=== PATIENT | male | born 1955 | race Hispanic/Latino ===

== ENCOUNTER 2021-10-08 23:13 | Emergency (ER) | payer SELFPAY ==
[2021-10-08] MEDS ORDERED: SODIUM CHLORIDE 0.9% 1000 ML 1,000 ML IV ONE (23:15)
--- NOTE | 2021-10-08 23:28 | Emergency Department Report ---
HPI <NICK OROZCO - Last Filed: 10/09/21 10:39> - HPI HPI: 66-year-old male [place] with concern for an overdose. The patient was given 4 mg of Narcan and EMS says that they did have some response/improvement in his mentation. However, upon arrival to our emergency department and placed into room #19 the patient remains altered and/or intoxicated. He is nonverbal and only responds to painful stimuli currently. He has never been in this emergency department previously. <KARAN MCKNIGHT S - Last Filed: 10/09/21 16:55> - General Time Seen by Provider: 10/08/21 23:15 ED Review of Systems ROS: Stated complaint: OVERDOSE Other details as noted in HPI <NICK OROZCO - Last Filed: 10/09/21 10:39> ROS: Stated complaint: OVERDOSE Other details as noted in HPI Comment: Unobtainable due to pts medical conditions <KARAN MCKNIGHT - Last Filed: 10/09/21 16:55> Physical Exam - Physical Exam Vital Signs: Vital Signs 10/08/21 10/08/21 10/08/21 23:14 23:17 23:22 Temperature 98.5 F Pulse Rate 91 H 83 Respiratory 22 22 Rate Blood Pressure Blood Pressure 122/69 [Left] O2 Sat by Pulse 94 94 97 Oximetry 10/08/21 10/08/21 10/09/21 23:31 23:45 00:01 Temperature Pulse Rate 91 H 94 H 90 Respiratory 24 24 24 Rate Blood Pressure 137/80 108/54 109/56 Blood Pressure [Left] O2 Sat by Pulse 92 89 97 Oximetry 10/09/21 10/09/21 10/09/21 00:15 00:31 01:01 Temperature Pulse Rate 88 90 89 Respiratory 21 21 20 Rate Blood Pressure 92/46 107/56 99/53 Blood Pressure [Left] O2 Sat by Pulse 95 97 99 Oximetry 10/09/21 10/09/21 10/09/21 01:15 01:30 01:45 Temperature Pulse Rate 99 H 99 H 93 H Respiratory 9 L 19 19 Rate Blood Pressure 125/64 134/63 134/56 Blood Pressure [Left] O2 Sat by Pulse 99 98 96 Oximetry 11/21/21 11/21/21 11/21/21 02:01 02:15 02:31 Temperature Pulse Rate 99 H 90 81 Respiratory 21 18 16 Rate Blood Pressure 129/61 135/81 125/72 Blood Pressure [Left] O2 Sat by Pulse 98 98 100 Oximetry <NICK OROZCO - Last Filed: 10/09/21 10:39> - Physical Exam Vital Signs: Vital Signs 10/08/21 23:14 Temperature 98.5 F Pulse Rate 91 H Respiratory 22 Rate Blood Pressure 122/69 [Left] O2 Sat by Pulse 94 Oximetry Physical Exam: GENERAL: The patient is ill-appearing and unresponsive. HENT: Normocephalic. Atraumatic. Patient has moist mucous membranes. EYES: Pupils reactive to light bilaterally. NECK: Supple. Trachea is midline. CHEST/LUNGS: Clear to auscultation. There is no respiratory distress noted. HEART/CARDIOVASCULAR: Regular. There is no tachycardia. There is no murmur. ABDOMEN: Abdomen is soft, nontender. Patient has normal bowel sounds. SKIN: Skin is warm and dry. NEURO: The patient is sedated and/or intoxicated. He does start groaning to painful stimuli. The patient is seen moving all 4 extremities at different times. MUSCULOSKELETAL: There is no obvious deformity. <KARAN MCKNIGHT - Last Filed: 10/09/21 16:55> ED Course Vital Signs 10/08/21 10/08/21 10/08/21 23:14 23:17 23:22 Temperature 98.5 F Pulse Rate 91 H 83 Respiratory 22 22 Rate Blood Pressure Blood Pressure 122/69 [Left] O2 Sat by Pulse 94 94 97 Oximetry 10/08/21 10/08/21 10/09/21 23:31 23:45 00:01 Temperature Pulse Rate 91 H 94 H 90 Respiratory 24 24 24 Rate Blood Pressure 137/80 108/54 109/56 Blood Pressure [Left] O2 Sat by Pulse 92 89 97 Oximetry 10/09/21 10/09/21 10/09/21 00:15 00:31 01:01 Temperature Pulse Rate 88 90 89 Respiratory 21 21 20 Rate Blood Pressure 92/46 107/56 99/53 Blood Pressure [Left] O2 Sat by Pulse 95 97 99 Oximetry 10/09/21 10/09/21 10/09/21 01:15 01:30 01:45 Temperature Pulse Rate 99 H 99 H 93 H Respiratory 9 L 19 19 Rate Blood Pressure 125/64 134/63 134/56 Blood Pressure [Left] O2 Sat by Pulse 99 98 96 Oximetry 10/09/21 10/09/21 10/09/21 02:01 02:15 02:31 Temperature Pulse Rate 99 H 90 81 Respiratory 21 18 16 Rate Blood Pressure 129/61 135/81 125/72 Blood Pressure [Left] O2 Sat by Pulse 98 98 100 Oximetry - Reevaluation(s) Reevaluation #1: 10/09/21 06:07 Patient currently on monitor. Stable vital signs. Normal oxygen saturation. Protecting airway. <NICK OROZCO - Last Filed: 10/09/21 10:39> Vital Signs 10/08/21 23:14 Temperature 98.5 F Pulse Rate 91 H Respiratory 22 Rate Blood Pressure 122/69 [Left] O2 Sat by Pulse 94 Oximetry <KARAN MCKNIGHT - Last Filed: 10/09/21 16:55> ED Medical Decision Making - Lab Data Result diagrams: 10/08/21 23:20 10/08/21 23:20 - Medical Decision Making I have reviewed all diagnostics obtained in emergency department including CT of the head, chest x-ray, lab results. Patient is awake and alert. He is appropriate. He is quite upset that his clothes were cut off. He is discharged home <NICK OROZCO - Last Filed: 10/09/21 10:39> - Lab Data Result diagrams: 10/08/21 23:20 10/08/21 23:20 Lab Results 10/08/21 10/08/21 10/08/21 Range/Units 23:20 23:20 23:20 WBC 7.4 (4.5-11.0) K/mm3 RBC 4.27 (3.65-5.03) M/mm3 Hgb 13.4 (11.8-15.2) gm/dl Hct 40.6 (35.5-45.6) % MCV 95 H (84-94) fl MCH 31 (28-32) pg MCHC 33 (32-34) % RDW 14.7 (13.2-15.2) % Plt Count 254 (140-440) K/mm3 Lymph % (Auto) 27.6 (13.4-35.0) % [place] % (Auto) 10.9 H (0.0-7.3) % Eos % (Auto) 5.1 H (0.0-4.3) % Baso % (Auto) 1.1 (0.0-1.8) % Lymph # (Auto) 2.0 (1.2-5.4) K/mm3 [place] # (Auto) 0.8 (0.0-0.8) K/mm3 Eos # (Auto) 0.4 (0.0-0.4) K/mm3 Baso # (Auto) 0.1 (0.0-0.1) K/mm3 Seg Neutrophils % 55.3 (40.0-70.0) % Seg Neutrophils # 4.1 (1.8-7.7) K/mm3 PT 12.6 (12.2-14.9) Sec. INR 0.85 L (0.87-1.13) Sodium 138 (137-145) mmol/L Potassium 3.5 L (3.6-5.0) mmol/L Chloride 103.6 (98-107) mmol/L Carbon Dioxide 22 (22-30) mmol/L Anion Gap 16 mmol/L BUN 14 (9-20) mg/dL Creatinine 0.8 (0.8-1.3) mg/dL Estimated GFR > 60 ml/min BUN/Creatinine Ratio 18 % Glucose 115 H (75-100) mg/dL Calcium 8.5 (8.4-10.2) mg/dL Total Bilirubin 0.30 (0.1-1.2) mg/dL AST 19 (5-40) units/L ALT 31 (7-56) units/L Alkaline Phosphatase 80 (35-129) units/L Ammonia (25-60) umol/L Troponin T < 0.010 (0.00-0.029) ng/mL Total Protein 6.7 (6.3-8.2) g/dL Albumin 4.0 (3.9-5) g/dL Albumin/Globulin Ratio 1.5 % TSH (0.270-4.200) mlU/mL Salicylates (2.8-20.0) mg/dL Acetaminophen (10.0-30.0) ug/mL Plasma/Serum Alcohol (0-0.07) % 10/08/21 10/08/21 10/08/21 Range/Units 23:20 23:20 23:20 WBC (4.5-11.0) K/mm3 RBC (3.65-5.03) M/mm3 Hgb (11.8-15.2) gm/dl Hct (35.5-45.6) % MCV (84-94) fl MCH (28-32) pg MCHC (32-34) % RDW (13.2-15.2) % Plt Count (140-440) K/mm3 Lymph % (Auto) (13.4-35.0) % [place] % (Auto) (0.0-7.3) % Eos % (Auto) (0.0-4.3) % Baso % (Auto) (0.0-1.8) % Lymph # (Auto) (1.2-5.4) K/mm3 [place] # (Auto) (0.0-0.8) K/mm3 Eos # (Auto) (0.0-0.4) K/mm3 Baso # (Auto) (0.0-0.1) K/mm3 Seg Neutrophils % (40.0-70.0) % Seg Neutrophils # (1.8-7.7) K/mm3 PT (12.2-14.9) Sec. INR (0.87-1.13) Sodium (137-145) mmol/L Potassium (3.6-5.0) mmol/L Chloride (98-107) mmol/L Carbon Dioxide (22-30) mmol/L Anion Gap mmol/L BUN (9-20) mg/dL Creatinine (0.8-1.3) mg/dL Estimated GFR ml/min BUN/Creatinine Ratio % Glucose (75-100) mg/dL Calcium (8.4-10.2) mg/dL Total Bilirubin (0.1-1.2) mg/dL AST (5-40) units/L ALT (7-56) units/L Alkaline Phosphatase (35-129) units/L Ammonia 21.0 L (25-60) umol/L Troponin T (0.00-0.029) ng/mL Total Protein (6.3-8.2) g/dL Albumin (3.9-5) g/dL Albumin/Globulin Ratio % TSH 1.350 (0.270-4.200) mlU/mL Salicylates < 0.3 L (2.8-20.0) mg/dL Acetaminophen (10.0-30.0) ug/mL Plasma/Serum Alcohol (0-0.07) % 10/08/21 10/08/21 Range/Units 23:20 23:20 WBC (4.5-11.0) K/mm3 RBC (3.65-5.03) M/mm3 Hgb (11.8-15.2) gm/dl Hct (35.5-45.6) % MCV (84-94) fl MCH (28-32) pg MCHC (32-34) % RDW (13.2-15.2) % Plt Count (140-440) K/mm3 Lymph % (Auto) (13.4-35.0) % [place] % (Auto) (0.0-7.3) % Eos % (Auto) (0.0-4.3) % Baso % (Auto) (0.0-1.8) % Lymph # (Auto) (1.2-5.4) K/mm3 [place] # (Auto) (0.0-0.8) K/mm3 Eos # (Auto) (0.0-0.4) K/mm3 Baso # (Auto) (0.0-0.1) K/mm3 Seg Neutrophils % (40.0-70.0) % Seg Neutrophils # (1.8-7.7) K/mm3 PT (12.2-14.9) Sec. INR (0.87-1.13) Sodium (137-145) mmol/L Potassium (3.6-5.0) mmol/L Chloride (98-107) mmol/L Carbon Dioxide (22-30) mmol/L Anion Gap mmol/L BUN (9-20) mg/dL Creatinine (0.8-1.3) mg/dL Estimated GFR ml/min BUN/Creatinine Ratio % Glucose (75-100) mg/dL Calcium (8.4-10.2) mg/dL Total Bilirubin (0.1-1.2) mg/dL AST (5-40) units/L ALT (7-56) units/L Alkaline Phosphatase (35-129) units/L Ammonia (25-60) umol/L Troponin T (0.00-0.029) ng/mL Total Protein (6.3-8.2) g/dL Albumin (3.9-5) g/dL Albumin/Globulin Ratio % TSH (0.270-4.200) mlU/mL Salicylates (2.8-20.0) mg/dL Acetaminophen 5.0 L (10.0-30.0) ug/mL Plasma/Serum Alcohol 0.43 H (0-0.07) % - EKG Data -: EKG Interpreted by Ut EKG shows normal: sinus rhythm, axis, intervals, QRS complexes (RVH), ST-T waves Rate: normal - EKG Data When compared to previous EKG there are: previous EKG unavailable Interpretation: other (Sinus rhythm, normal axis, rate of 93 bpm, RVH. No ST elevation GA.) - Radiology Data Radiology results: report reviewed, image reviewed XR chest 1V ap INDICATION / CLINICAL INFORMATION: Altered mental status. COMPARISON: None available. FINDINGS: SUPPORT DEVICES: None. HEART /PULMONARY VASCULATURE: Median sternotomy changes. There is cardiac enlargement. No significant pulmonary vasculature congestion. LUNGS / PLEURA: Moderate asymmetric parenchymal opacities noted within the lateral and basilar region of the right lung. This is favored to be chronic. Left lung is clear consolidation. No sizable pleural effusion. Lucency along the lateral right lung is presumably artifactual. No definite pneumothorax is seen. ADDITIONAL FINDINGS: No significant additional findings. IMPRESSION: Moderate asymmetric parenchymal opacities in the right lung are favored to be chronic. - Medical Decision Making This patient presented to the emergency department [place] a [place]. Initially EMS said that there was some response to Narcan, but the patient presents mostly unresponsive to our emergency department. He does moan/groan to painful stimuli and is seen moving all 4 extremities at different times. His initial vital signs are reassuring including being afebrile. Chest x-ray does not show any acute process including any pneumothorax, pleural effusion, widened mediastinum, or obvious pneumonia. EKG does not have any morphology consistent with ST elevation myocardial infarction. Labs have been mostly unremarkable thus far including CBC, metabolic panel, ammonia level, coags, negative troponin, normal thyroid function, but the pat ient's blood alcohol level came back extremely elevated at 0.43. A banana bag has been ordered. Patient has been sent for a CT scan of the head without contrast. Patient has been signed out to the overnight emergency physician, Dr Gibbs, to follow-up on the CT head results and continue to monitor the patient until he is at least clinically sober, if not legally sober, for reevaluation of his men tation and assistance with disposition. <KARAN MCKNIGHT - Last Filed: 10/09/21 16:55> Critical care attestation.: If time is entered above; I have spent that time in minutes in the direct care of this critically ill patient, excluding procedure time. <NICK OROZCO - Last Filed: 10/09/21 10:39> Critical Care Time: No Critical care attestation.: If time is entered above; I have spent that time in minutes in the direct care of this critically ill patient, excluding procedure time. <KARAN MCKNIGHT - Last Filed: 10/09/21 16:55> ED Disposition Is pt being admited?: No Does the pt Need Aspirin: No <NICK OROZCO - Last Filed: 10/09/21 10:39> Is pt being admited?: No <KARAN MCKNIGHT - Last Filed: 10/09/21 16:55> Clinical Impression: Alcohol intoxication, Unresponsive episode Disposition: HOME / SELF CARE / HOMELESS Condition: Stable Referrals: RUKHSANA VANCE MD [Staff Physician] - 3-5 Days
[2021-10-08 23:37] LABS: Basophils # (Auto) 0.1 K/mm3 (0.0-0.1); Basophils % (Auto) 1.1 % (0.0-1.8); Eosinophils # (Auto) 0.4 K/mm3 (0.0-0.4); Eosinophils % (Auto) 5.1 % (0.0-4.3); Hematocrit 40.6 % (35.5-45.6); Hemoglobin 13.4 gm/dl (11.8-15.2); Lymphocytes % (Auto) 27.6 % (13.4-35.0); Mean Corpuscular HGB Conc 33 % (32-34); Mean Corpuscular Volume 95 fl (84-94); Monocytes # (Auto) 0.8 K/mm3 (0.0-0.8); Monocytes % (Auto) 10.9 % (0.0-7.3); Platelet Count 254 K/mm3 (140-440); Red Blood Count 4.27 M/mm3 (3.65-5.03); Red Cell Distribution Width 14.7 % (13.2-15.2)
[2021-10-08 23:46] LABS: INR 0.85 (0.87-1.13)
--- NOTE | 2021-10-08 23:48 | XRay Report ---
XR chest 1V ap INDICATION / CLINICAL INFORMATION: Altered mental status. COMPARISON: None available. FINDINGS: SUPPORT DEVICES: None. HEART /PULMONARY VASCULATURE: Median sternotomy changes. There is cardiac enlargement. No significant pulmonary vasculature congestion. LUNGS / PLEURA: Moderate asymmetric parenchymal opacities noted within the lateral and basilar region of the right lung. This is favored to be chronic. Left lung is clear consolidation. No sizable pleur al effusion. Lucency along the lateral right lung is presumably artifactual. No definite pneumothorax is seen. ADDITIONAL FINDINGS: No significant additional findings. IMPRESSION: Moderate asymmetric parenchymal opacities in the right lung are favored to be chronic. Recommend clin ical correlation, as acute pneumonia cannot be entirely excluded. Signer Name: Anselmo Headley MD Signed: 10/08/2021 11:43 PM Workstation Name: [id number]
[2021-10-08] MEDS ORDERED: THIAMINE 100 MG, FOLIC ACID 1 MG, MULTIPLE VITAMIN INJ, ADULT 10 ML in SODIUM CHLORIDE ... IV ONE (23:54)
[2021-10-08 23:58] LABS: Alanine Aminotransferase 31 units/L (7-56); BUN/Creatinine Ratio 18; Blood Urea Nitrogen 14 mg/dL (9-20); Calcium 8.5 mg/dL (8.4-10.2); Hemolysis Index 4
--- NOTE | 2021-10-09 01:12 | Cat Scan Report ---
CT HEAD WITHOUT CONTRAST INDICATION / CLINICAL INFORMATION: Altered mental status. TECHNIQUE: All CT scans at this location are performed using CT dose reduction for ALARA by means of automated exposure control. COMPARISON: None available. FINDINGS: BRAIN PARENCHYMA: No acute intracranial hemorrhage. No evidence of recent infarct. No mass effect or midline shift. White matter chronic small vessel ischemic changes. VENTRICULAR SYSTEM/EXTRA-AXIAL SPACES: Age-related cerebral atrophy. No extra-axial fluid collection. ORBITS: Normal as visualized. SKELETAL SYSTEM/SOFT TISSUES: Normal bones and soft tissues. PARANASAL SINUSES/MASTOID AIR CELLS: No significant abnormality. ADDITIONAL FINDINGS: None. IMPRESSION: 1. No acute intracranial abnormality. Signer Name: Anselmo Headley MD Signed: 10/09/2021 1:07 AM Workstation Name: [id number]
[2021-10-09 10:59] VITALS: BP 135/70
== END 2021-10-09 11:09 | disposition home or self-care (01) ==
LOC: ED 23:13
DX: F10.129 Alcohol abuse with intoxication, unspecified (principal); Y90.9 Presence of alcohol in blood, level not specified; R79.1 Abnormal coagulation profile; R40.4 Transient alteration of awareness
CPT/HCPCS: 36415; 70450; 71045; 80053; 82140; 84443; 84484; 85025; 85610; 93005; 96365; 96366; 99285; J3411; J3490; J7030; 80320; Q0162; G0480

== ENCOUNTER 2022-02-24 22:48 | Emergency (ER) | payer SELFPAY ==
[2022-02-25] MEDS ORDERED: SODIUM CHLORIDE 0.9% 1000 ML 1,000 ML IV ONE (00:46)
--- NOTE | 2022-02-25 01:12 | XRay Report ---
Chest single view INDICATION: Dyspnea IMPRESSION: Patchy airspace disease within the right lower lung is unchanged from 10/08/2021. This ma y be chronic opacity. The left lung is clear. Signer Name: Jose Crawford MD Signed: 02/25/2022 1:08 AM Workstation Name: [email or web address]
[2022-02-25 01:47] LABS: Basophils % (Auto) 0.7 % (0.0-1.8); Eosinophils # (Auto) 0.3 K/mm3 (0.0-0.4); Eosinophils % (Auto) 3.4 % (0.0-4.3); Hematocrit 42.1 % (35.5-45.6); Hemoglobin 13.8 gm/dl (11.8-15.2); Lymphocytes # (Auto) 2.4 K/mm3 (1.2-5.4); Lymphocytes % (Auto) 32.6 % (13.4-35.0); Mean Corpuscular HGB Conc 33 % (32-34); Mean Corpuscular Volume 92 fl (84-94); Monocytes # (Auto) 0.5 K/mm3 (0.0-0.8); Monocytes % (Auto) 6.8 % (0.0-7.3); Platelet Count 212 K/mm3 (140-440); Red Cell Distribution Width 15.7 % (13.2-15.2)
[2022-02-25 02:07] LABS: Alanine Aminotransferase 9 units/L (7-56); Albumin 3.8 g/dL (3.9-5); BUN/Creatinine Ratio 13; Blood Urea Nitrogen 15 mg/dL (9-20); Calcium 8.2 mg/dL (8.4-10.2); Hemolysis Index 9
--- NOTE | 2022-02-25 05:05 | Emergency Department Report ---
<VJ WORRELL - Last Filed: 02/25/22 05:01> ED Altered Mental Status HPI - General Chief Complaint: Altered Mental Status Stated Complaint: ETOH Time Seen by Provider: 02/25/22 00:45 Source: patient Mode of arrival: Stretcher Limitations: No Limitations - History of Present Illness Initial Comments: Was found at the airport at [facility] with decreased responsiveness with episodes of aggression. ETOH per EMS. Responds only to deep pain. Not able to communicate at this time. MD Complaint: altered mental status, confusion, decreased responsiveness, intoxication -: unknown Severity: severe Consistency of Symptoms: constant Context: alcohol abuse Associated Symptoms: denies other symptoms - Related Data Allergies Allergy/AdvReac Type Severity Reaction Status Date / Time No Known Allergies Allergy Verified 10/09/21 00:38 ED Review of Systems Comment: Unobtainable due to pts medical conditions ED Past Medical Hx - Past Medical History Previous Medical History?: No Hx Hypertension: No Hx CVA: No - Social History Smoking Status: Unknown if ever smoked Substance Use Type: Alcohol ED Physical Exam - General Limitations: No Limitations, Altered Mental Status General appearance: appears intoxicated, other (dissheveled ) - Head Head exam: Present: atraumatic, normocephalic - Eye Eye exam: Present: normal appearance - ENT ENT exam: Present: mucous membranes moist - Neck Neck exam: Present: normal inspection - Respiratory Respiratory exam: Present: normal lung sounds bilaterally. Absent: respiratory distress - Cardiovascular Cardiovascular Exam: Present: regular rate, normal rhythm. Absent: systolic murmur, diastolic murmur, rubs, gallop - GI/Abdominal GI/Abdominal exam: Present: soft, normal bowel sounds - Rectal Rectal exam: Present: deferred - Extremities Exam Extremities exam: Present: normal inspection - Back Exam Back exam: Present: normal inspection - Expanded Neurological Exam Expanded Best Eye Response ([place]): (3) open to voice Best Motor Response ([place]): (6) obeys commands Best Verbal Response ([place]): (4) confused conversation [place] Total: 13 - Psychiatric Psychiatric exam: Present: depressed - Skin Skin exam: Present: warm, dry, intact, normal color. Absent: rash - Lab Data Result diagrams: 02/25/22 01:00 02/25/22 01:00 - Radiology Data Radiology results: report reviewed, image reviewed - Medical Decision Making work up showed high etoh , fluids given will rpeat level , pt is homeless ED Disposition Clinical Impression: Alcohol intoxication Disposition: 01 HOME / SELF CARE / HOMELESS Condition: Stable Instructions: Binge-Drinking Information, Adult Referrals: RUKHSANA VANCE MD [Primary Care Provider] - 3-5 Days Print Language: [place] <JIMMY MCLEANTristin - Last Filed: 02/25/22 09:17> ED Review of Systems ROS: Stated complaint: ETOH Other details as noted in HPI ED Course Vital Signs 02/25/22 02/25/22 02/25/22 02:00 03:16 05:00 Temperature 98 F 97.5 F L Pulse Rate 82 82 89 Respiratory 18 15 20 Rate Blood Pressure 97/59 Blood Pressure 101/46 92/52 [Left] O2 Sat by Pulse 100 99 97 Oximetry 02/25/22 07:07 Temperature Pulse Rate 77 Respiratory 16 Rate Blood Pressure Blood Pressure 104/57 [Left] O2 Sat by Pulse 94 Oximetry - Reevaluation(s) Reevaluation #1: 02/25/22 09:16 The patient later woke up and he was not slurring his words he was alert active and oriented x3 and so at this time he no longer seems intoxicated with alcohol. He is discharged. - Lab Data Result diagrams: 02/25/22 01:00 02/25/22 01:00 Lab Results 02/25/22 02/25/22 02/25/22 Range/Units 01:00 01:00 01:00 WBC 7.3 (4.5-11.0) K/mm3 RBC 4.60 (3.65-5.03) M/mm3 Hgb 13.8 (11.8-15.2) gm/dl Hct 42.1 (35.5-45.6) % MCV 92 (84-94) fl MCH 30 (28-32) pg MCHC 33 (32-34) % RDW 15.7 H (13.2-15.2) % Plt Count 212 (140-440) K/mm3 Lymph % (Auto) 32.6 (13.4-35.0) % [place] % (Auto) 6.8 (0.0-7.3) % Eos % (Auto) 3.4 (0.0-4.3) % Baso % (Auto) 0.7 (0.0-1.8) % Lymph # (Auto) 2.4 (1.2-5.4) K/mm3 [place] # (Auto) 0.5 (0.0-0.8) K/mm3 Eos # (Auto) 0.3 (0.0-0.4) K/mm3 Baso # (Auto) 0.0 (0.0-0.1) K/mm3 Seg Neutrophils % 56.5 (40.0-70.0) % Seg Neutrophils # 4.2 (1.8-7.7) K/mm3 Sodium 141 (137-145) mmol/L Potassium 4.0 (3.6-5.0) mmol/L Chloride 104.7 (98-107) mmol/L Carbon Dioxide 19 L (22-30) mmol/L Anion Gap 21 mmol/L BUN 15 (9-20) mg/dL Creatinine 1.2 (0.8-1.3) mg/dL Estimated GFR > 60 ml/min BUN/Creatinine Ratio 13 % Glucose 84 (75-100) mg/dL Calcium 8.2 L (8.4-10.2) mg/dL Total Bilirubin 0.20 (0.1-1.2) mg/dL AST 15 (5-40) units/L ALT 9 (7-56) units/L Alkaline Phosphatase 79 (35-129) units/L Total Protein 7.0 (6.3-8.2) g/dL Albumin 3.8 L (3.9-5) g/dL Albumin/Globulin Ratio 1.2 % Salicylates < 0.3 L (2.8-20.0) mg/dL Acetaminophen (10.0-30.0) ug/mL Plasma/Serum Alcohol (0-0.07) % 02/25/22 02/25/22 02/25/22 Range/Units 01:00 01:00 04:37 WBC (4.5-11.0) K/mm3 RBC (3.65-5.03) M/mm3 Hgb (11.8-15.2) gm/dl Hct (35.5-45.6) % MCV (84-94) fl MCH (28-32) pg MCHC (32-34) % RDW (13.2-15.2) % Plt Count (140-440) K/mm3 Lymph % (Auto) (13.4-35.0) % [place] % (Auto) (0.0-7.3) % Eos % (Auto) (0.0-4.3) % Baso % (Auto) (0.0-1.8) % Lymph # (Auto) (1.2-5.4) K/mm3 [place] # (Auto) (0.0-0.8) K/mm3 Eos # (Auto) (0.0-0.4) K/mm3 Baso # (Auto) (0.0-0.1) K/mm3 Seg Neutrophils % (40.0-70.0) % Seg Neutrophils # (1.8-7.7) K/mm3 Sodium (137-145) mmol/L Potassium (3.6-5.0) mmol/L Chloride (98-107) mmol/L Carbon Dioxide (22-30) mmol/L Anion Gap mmol/L BUN (9-20) mg/dL Creatinine (0.8-1.3) mg/dL Estimated GFR ml/min BUN/Creatinine Ratio % Glucose (75-100) mg/dL Calcium (8.4-10.2) mg/dL Total Bilirubin (0.1-1.2) mg/dL AST (5-40) units/L ALT (7-56) units/L Alkaline Phosphatase (35-129) units/L Total Protein (6.3-8.2) g/dL Albumin (3.9-5) g/dL Albumin/Globulin Ratio % Salicylates (2.8-20.0) mg/dL Acetaminophen 5.0 L (10.0-30.0) ug/mL Plasma/Serum Alcohol 0.37 H 0.33 H (0-0.07) % Critical care attestation.: If time is entered above; I have spent that time in minutes in the direct care of this critically ill patient, excluding procedure time. ED Disposition Is pt being admited?: No Does the pt Need Aspirin: No
[2022-02-25] MEDS ORDERED: THIAMINE 100 MG, FOLIC ACID 1 MG, MULTIPLE VITAMIN INJ, ADULT 10 ML in SODIUM CHLORIDE ... IV ONE (05:06)
[2022-02-25 07:08] VITALS: BP 104/57
== END 2022-02-25 09:41 | disposition home or self-care (01) ==
LOC: ED 22:48
DX: F10.129 Alcohol abuse with intoxication, unspecified (principal); Y90.9 Presence of alcohol in blood, level not specified
CPT/HCPCS: 36415; 71045; 80053; 85025; 96361; 96365; 96366; 99284; J3411; J3490; J7030; 80320; Q0162; G0480

== ENCOUNTER 2022-06-09 23:38 | Emergency (ER) | payer SELFPAY ==
[2022-06-10] MEDS ORDERED: SODIUM CHLORIDE 0.9% 1000 ML 1,000 ML IV ONE (03:11)
--- NOTE | 2022-06-10 03:18 | Emergency Department Report ---
<CHA ALVAREZ - Last Filed: 06/10/22 06:21> ED General Adult HPI - General Chief complaint: Fall Stated complaint: FALL/ETOH Time Seen by Provider: 06/10/22 03:11 Source: patient, EMS Mode of arrival: Stretcher Limitations: No Limitations - History of Present Illness Initial comments: 67 yo Alcohol M brought in with a fall while intoxicated. Pt says he has been drinking too much tonight. He denies any HERNANDES or neck pain or any other joint pain. No other modifying or associated factors. - Related Data Previous Rx's Medication Instructions Recorded Last Taken Type chlordiazePOXIDE [Librium] 25 mg PO Q6H 5 Days #20 cap NS 06/10/22 Unknown Rx Allergies Allergy/AdvReac Type Severity Reaction Status Date / Time No Known Allergies Allergy Verified 10/09/21 00:38 ED Review of Systems Comment: All other systems reviewed and negative Constitutional: other (intoxication ) Musculoskeletal: myalgia ED Past Medical Hx - Past Medical History Previous Medical History?: No Hx Hypertension: No Hx CVA: No - Surgical History Past Surgical History?: No - Social History Smoking Status: Never Smoker Substance Use Type: None - Medications Home Medications: Home Medications Medication Instructions Recorded Confirmed Last Taken Type chlordiazePOXIDE [Librium] 25 mg PO Q6H 5 Days #20 cap NS 06/10/22 Unknown Rx ED Physical Exam - General Limitations: No Limitations General appearance: other (intoxicated ) - Head Head exam: Present: atraumatic, normal inspection - Eye Pupils: Present: normal accommodation - ENT ENT exam: Present: normal exam, normal orophraynx, mucous membranes dry - Neck Neck exam: Present: normal inspection, full ROM. Absent: tenderness - Respiratory Respiratory exam: Present: normal lung sounds bilaterally. Absent: respiratory distress, accessory muscle use - Cardiovascular Cardiovascular Exam: Present: regular rate, normal rhythm, normal heart sounds - GI/Abdominal GI/Abdominal exam: Present: soft, normal bowel sounds. Absent: distended, tenderness - Extremities Exam Extremities exam: Present: normal inspection. Absent: tenderness - Back Exam Back exam: Present: normal inspection. Absent: tenderness - Neurological Exam Neurological exam: Present: alert, oriented X3 - Psychiatric Psychiatric exam: Present: normal affect - Skin Skin exam: Present: warm, dry ED Course - Reevaluation(s) Reevaluation #1: 06/10/22 06:22 Given banana bags x 1L bolus x 1-- Pt signed out to Dr Worrell while waiting for patient response to treatment-- ED Medical Decision Making - Lab Data Result diagrams: 06/10/22 03:40 06/10/22 03:40 - Medical Decision Making here with alcohol intoxication with a fall-- will check CT head and routine labs including CBC, CMP and UA -- and treat with ivf ns 1L bolus x 1-- while waiting for above labs - ED Disposition Clinical Impression: Alcohol intoxication Qualifiers: Complication of substance-induced condition: with unspecified complication Qualified Code(s): F10.929 - Alcohol use, unspecified with intoxication, unspecified Fall Qualifiers: Encounter type: initial encounter Qualified Code(s): W19.XXXA - Unspecified fall, initial encounter Disposition: 01 HOME / SELF CARE / HOMELESS Does the pt Need Aspirin: No Condition: Stable Instructions: Binge-Drinking Information, Adult Additional Instructions: Avoid excess alcohol drink to help your overall health Increase your daily fluid to help your hydration Call and schedule follow-up with your primary doctor in the next 3 to 5 days for progress Please do not hesitate to call or return to emergency room for symptoms worsen Take your new medication and avoid drinking alcohol while on this medication Prescriptions: chlordiazePOXIDE [Librium] 25 mg PO Q6H 5 Days #20 cap NS Time of Disposition: 06:23 <VJ WORRELL - Last Filed: 06/10/22 09:30> ED Review of Systems ROS: Stated complaint: FALL/ETOH Other details as noted in HPI ED Course Vital Signs 06/09/22 06/10/22 06/10/22 23:38 00:11 00:16 Temperature 97.7 F Pulse Rate 94 H Respiratory 18 Rate Blood Pressure 119/73 166/116 166/116 O2 Sat by Pulse 96 97 97 Oximetry 06/10/22 06/10/22 06/10/22 00:30 00:46 01:49 Temperature Pulse Rate 71 Respiratory 18 Rate Blood Pressure 166/116 166/116 O2 Sat by Pulse 97 98 93 Oximetry 06/10/22 06/10/22 06/10/22 02:01 02:15 02:31 Temperature Pulse Rate 71 75 71 Respiratory 17 17 16 Rate Blood Pressure 130/67 148/112 148/112 O2 Sat by Pulse 93 92 93 Oximetry 06/10/22 06/10/22 06/10/22 02:45 03:01 03:15 Temperature Pulse Rate 71 77 77 Respiratory 19 15 15 Rate Blood Pressure 148/112 148/112 148/112 O2 Sat by Pulse 92 92 99 Oximetry 06/10/22 06/10/22 06/10/22 03:30 03:48 04:01 Temperature Pulse Rate 70 75 67 Respiratory 14 16 17 Rate Blood Pressure 130/67 130/67 O2 Sat by Pulse 100 95 95 Oximetry 06/10/22 06/10/22 06/10/22 04:15 04:31 04:45 Temperature Pulse Rate 83 65 70 Respiratory 19 17 18 Rate Blood Pressure 130/67 130/67 130/67 O2 Sat by Pulse 97 98 91 Oximetry 06/10/22 06/10/22 06/10/22 05:01 05:15 05:31 Temperature Pulse Rate 70 60 64 Respiratory 19 16 19 Rate Blood Pressure 130/67 130/67 130/67 O2 Sat by Pulse 91 97 94 Oximetry 06/10/22 06/10/22 06/10/22 05:45 06:00 06:15 Temperature Pulse Rate 68 60 70 Respiratory 18 17 20 Rate Blood Pressure 130/67 140/74 140/74 O2 Sat by Pulse 97 96 95 Oximetry 06/10/22 06/10/22 06:31 06:45 Temperature Pulse Rate 70 70 Respiratory 17 18 Rate Blood Pressure 140/74 140/74 O2 Sat by Pulse 95 95 Oximetry ED Medical Decision Making - Lab Data Result diagrams: 06/10/22 03:40 06/10/22 03:40 - Medical Decision Making pt requested to go home , vss awake and alert Critical care attestation.: If time is entered above; I have spent that time in minutes in the direct care of this critically ill patient, excluding procedure time. ED Disposition Is pt being admited?: No Does the pt Need Aspirin: No
--- NOTE | 2022-06-10 03:56 | Cat Scan Report ---
CT HEAD WITHOUT CONTRAST INDICATION / CLINICAL INFORMATION: stroke. TECHNIQUE: CT head was performed without administration of intravenous contrast. All CT scans at this location are performed using CT dose reduction for ALARA by means of automated exposure control. COMPARISON: CT head 10/09/2021 FINDINGS: CEREBRAL HEMISPHERES: Generalized atrophy and bilateral regions of periventricular white matter hypoa ttenuation compatible with microvascular ischemia are demonstrated. No midline shift. Basal cisterns patent. Small lacunar infarction left putamen stable. HEMORRHAGE: None. CEREBELLUM / BRAINSTEM: No significant abnormality. ORBITS: No significant abnormality. SOFT TISSUES: Small right parietal scalp contusion is not excluded. SKULL: No significant abnormality. PARANASAL SINUSES / MASTOID AIR CELLS: Normal as visualized. ADDITIONAL FINDINGS: None. IMPRESSION: 1. No acute intracranial abnormality. Signer Name: Matthew Hardy II, MD Signed: 06/10/2022 3:55 AM Workstation Name: [id number]
[2022-06-10 04:09] LABS: Basophils # (Auto) 0.1 K/mm3 (0.0-0.1); Basophils % (Auto) 1.4 % (0.0-1.8); Eosinophils # (Auto) 0.3 K/mm3 (0.0-0.4); Eosinophils % (Auto) 6.4 % (0.0-4.3); Hematocrit 40.8 % (35.5-45.6); Hemoglobin 13.9 gm/dl (11.8-15.2); Lymphocytes # (Auto) 2.1 K/mm3 (1.2-5.4); Lymphocytes % (Auto) 42.6 % (13.4-35.0); Mean Corpuscular HGB Conc 34 % (32-34); Mean Corpuscular Volume 92 fl (84-94); Monocytes # (Auto) 0.4 K/mm3 (0.0-0.8); Monocytes % (Auto) 7.5 % (0.0-7.3); Platelet Count 197 K/mm3 (140-440); Red Blood Count 4.45 M/mm3 (3.65-5.03); Red Cell Distribution Width 16.5 % (13.2-15.2)
[2022-06-10 04:20] LABS: INR 0.92 (0.87-1.13); Partial Thromboplastin Time 26.4 Sec. (24.2-36.6)
[2022-06-10 04:22] LABS: Alanine Aminotransferase 26 units/L (7-56); Albumin 3.8 g/dL (3.9-5); BUN/Creatinine Ratio 14; Blood Urea Nitrogen 13 mg/dL (9-20); Calcium 8.6 mg/dL (8.4-10.2); Hemolysis Index 5
[2022-06-10 04:34] LABS: Free T4 (Free Thyroxine) 1.01 ng/dL (0.76-1.46)
[2022-06-10 10:32] VITALS: BP 132/78
== END 2022-06-10 10:00 | disposition home or self-care (01) ==
LOC: ED 23:38
DX: F10.129 Alcohol abuse with intoxication, unspecified (principal); R79.1 Abnormal coagulation profile; Z79.899 Other long term (current) drug therapy; W18.39XA Other fall on same level, initial encounter; Y93.89 Activity, other specified; Y92.89 Other specified places as the place of occurrence of the external cause; Y99.8 Other external cause status; Y90.9 Presence of alcohol in blood, level not specified
CPT/HCPCS: 36415; 70450; 80053; 84439; 84443; 85025; 85610; 85730; 96360; 99284; J7030; 80320; G0480